=== PATIENT | female | born 1945 | race Caucasian/White ===

== ENCOUNTER 2021-07-29 11:24 | Day surgery (SDC) | payer MEDICARE, OTHER ==
[~2021-07-29] VITALS: Ht 157.5 cm; Wt 69.8 kg
[~2021-07-29 11:24] MED LIST: ACET-1600 PO; GABA100C PO; GUAI-106 PO; MULT200T12 PO; OMEP20TA62 PO; PSEU-57 PO; SULF500T36 PO; Vitamin B12 SL; cranberry PO; folic acid PO
[2021-07-29] MEDS ORDERED: PREDNISONE PO (12:02)
[2021-07-29] MEDS ORDERED: FLONASE NAS (12:02)
[2021-07-29 12:03] VITALS: BP 163/83
[2021-07-29] MEDS ORDERED: CHLORHEXIDINE 15 ML UDC ONE (12:10)
[2021-07-29] MEDS ORDERED: CHLORHEXIDINE 15 ML UDC PO ONE (12:30)
[2021-07-29] MEDS ORDERED: LACTATED RINGERS 1,000 ML IV SCH (13:00)
[2021-07-29] MEDS ORDERED: PROPOFOL 50 ML ONE (13:10)
[2021-07-29] MEDS ORDERED: PROPOFOL 10 MG/ML, 20ML ONE (13:24)
== END 2021-07-29 15:30 | disposition home or self-care (01) ==
LOC: OUT 11:24
PROVIDERS: ATTEND Internal Medicine Gastroenterology
DX: Z09 Encounter for follow-up examination after completed treatment for conditions other than malignant neoplasm (principal); K52.89 Other specified noninfective gastroenteritis and colitis; D13.2 Benign neoplasm of duodenum; K44.9 Diaphragmatic hernia without obstruction or gangrene; K22.8 Other specified diseases of esophagus; K21.9 Gastro-esophageal reflux disease without esophagitis; D50.9 Iron deficiency anemia, unspecified; E03.9 Hypothyroidism, unspecified; Z79.899 Other long term (current) drug therapy; Z86.010 Personal history of colon polyps; Z88.8 Allergy status to other drugs, medicaments and biological substances; Z90.49 Acquired absence of other specified parts of digestive tract
CPT/HCPCS: 43239; 45380; 88305; 93005; J2704; J7120